=== PATIENT | female | born 1970 | race Caucasian/White ===

== ENCOUNTER 2016-09-03 01:32 | Emergency (ER) | payer BC ==
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
[2016-09-03 02:20] VITALS: BP 120/74
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
== END 2016-09-03 02:20 ==
LOC: ED 01:32
DX: S09.90XA Unspecified injury of head, initial encounter (principal); R11.0 Nausea; R51 Headache; Y09 Assault by unspecified means; Y93.9 Activity, unspecified; Y92.9 Unspecified place or not applicable; Y99.9 Unspecified external cause status
CPT/HCPCS: 70450; 99282